=== PATIENT | female | born 1970 | race African-American/Black ===

== ENCOUNTER 2024-05-11 13:03 | Inpatient (IN) | payer OTHER ==
[2024-05-11 13:53] VITALS: BMI 25.4
[2024-05-11] MEDS ORDERED: hydrOXYzine PAMOATE 25 MG CAPSULE (FP) PO PRN (14:46)
[2024-05-11] MEDS ORDERED: ONDANSETRON *ODT* 4 MG TABLET SL PRN (14:46)
[2024-05-11] MEDS ORDERED: guaiFENesin 600 MG TABLET.ER (FP) PO PRN (14:46)
[2024-05-11] MEDS ORDERED: DICYCLOMINE HCL 10 MG CAPSULE PO PRN (14:46)
[2024-05-11] MEDS ORDERED: MAG HYDROX/AL HYDROX/SIMETH 30 ML UNIT-DOSE CUP PO PRN (14:46)
[2024-05-11] MEDS ORDERED: IBUPROFEN 600 MG TABLET (FP) PO PRN (14:46)
[2024-05-11] MEDS ORDERED: LOPERAMIDE HCL 2 MG CAPSULE PO PRN (14:46)
[2024-05-11] MEDS ORDERED: NALOXONE (NARCAN) HCL 4 MG/0.1 ML SPRAY NS PRN (14:46)
[2024-05-11] MEDS ORDERED: BISMUTH SUBSALICYLATE 262 MG/15 ML BTL PO PRN (14:46)
[2024-05-11] MEDS ORDERED: IBUPROFEN 400 MG TABLET (FP) PO PRN (14:46)
[2024-05-11] MEDS ORDERED: BENZONATATE 200 MG CAPSULE PO PRN (14:46)
[2024-05-11] MEDS ORDERED: BENZOCAINE/MENTHOL (CHLORASEPTIC ) LOZENGE MM PRN (14:46)
[2024-05-11] MEDS ORDERED: METHOCARBAMOL 500 MG TABLET PO PRN (14:46)
[2024-05-11] MEDS: INSULIN ASPART SLIDING SCALE (NOVOLOG) 1 VIAL SQ SCH (16:57)
[2024-05-11] MEDS: MELATONIN 5 MG TABLETS PO SCH (21:58)
[2024-05-11] MEDS: SACUBITRIL/VALSARTAN 49 MG-51 MG TABLET PO SCH (21:58)
[2024-05-11] MEDS: THIAMINE 100 MG TABLET PO SCH (21:58)
[2024-05-11] MEDS: FUROSEMIDE 20 MG TABLET (FP) PO SCH (21:58)
[2024-05-11] MEDS: risperiDONE 1 MG TABLET PO SCH (21:59)
[2024-05-11] MEDS: CARVEDILOL 12.5 MG TABLET (FP) PO SCH (21:59)
[2024-05-11] MEDS: ATORVASTATIN CA 10 MG TABLET (FP) PO SCH (21:59)
[2024-05-11] MEDS ORDERED: risperiDONE 2 MG TABLET PO SCH ×2 (22:00)
[2024-05-11] MEDS ORDERED: RISPERIDONE PO SCH (22:00)
[2024-05-12] MEDS: BICTEGRAV/EMTRICIT/TENOFOV (BIKTARVY) 50-200-25 MG TABLET PO SCH (07:20)
[2024-05-12] MEDS ORDERED: chlordiazePOXIDE HCL 25 MG CAPSULE PO PRN (09:30)
[2024-05-12] MEDS: FLUTICASONE/UMECLIDIN/VILANTER(100-62.5-25 TRELEGY ELLIPTA) INAHLER IH SCH (10:23)
[2024-05-12] MEDS: PRENATAL VITAMINS W/ FOLIC ACID TABLET (FP) PO SCH (10:23)
[2024-05-12] MEDS: chlordiazePOXIDE HCL 25 MG CAPSULE PO SCH (10:26)
[2024-05-12 11:36] LABS: HEMATOCRIT 41.6 % (32.4-45.2); HEMOGLOBIN 13.8 GM/dL (10.7-15.3); MCH 31.3 pg (25.7-33.7); MCHC 33.2 g/dl (32.0-36.0); MEAN CELL VOLUME 94.1 fl (80-96); MEAN PLT VOLUME 9.5 fl (7.5-11.1); PLATELET COUNT 223 10^3/uL (134-434); RBC 4.41 M/mm3 (3.60-5.2); RDW 14.3 % (11.6-15.6); WHITE BLOOD COUNT 4.2 K/mm3 (4.0-10.0)
[2024-05-12 14:09] LABS: CHLORIDE 111 mmol/L (98-107); POTASSIUM 3.7 mmol/L (3.5-5.1); SODIUM 143 mmol/L (136-145)
[2024-05-12 14:17] LABS: ALBUMIN 3.1 g/dl (3.4-5.0); ANION GAP 6 mmol/L (4-13); BLOOD UREA NITROGEN 11.9 mg/dL (7-18); CO2 26 mmol/L (21-32)
[2024-05-12 14:18] LABS: GLUCOSE,RANDOM 114 mg/dL (74-106)
[2024-05-12 14:20] LABS: CREATININE 0.7 mg/dL (0.55-1.3); SGOT/AST 16 U/L (15-37)
[2024-05-12 14:21] LABS: SGPT/ALT 23 U/L (13-61)
[2024-05-12 14:22] LABS: BILIRUBIN,TOTAL 0.3 mg/dL (0.2-1)
[2024-05-12 14:23] LABS: ALK PHOS 66 U/L (45-117); TOT PROT 6.5 g/dl (6.4-8.2)
[2024-05-12] MEDS: traZODone HCL 50 MG TABLET (FP) PO SCH (22:58)
[2024-05-13] MEDS ORDERED: INSULIN ASPART SLIDING SCALE (NOVOLOG) 1 VIAL SQ ONE (11:06)
[2024-05-13] MEDS: ACETAMINOPHEN 325 MG TABLET (FP) PO PRN (17:23)
[2024-05-13] MEDS: POLYETHYLENE GLYCOL (HEALTHYLAX) 3350 17 GM PACKET PO PRN (17:39)
[2024-05-14] MEDS: chlordiazePOXIDE HCL 25 MG CAPSULE PO SCH (06:00)
[2024-05-14] MEDS: MAGNESIUM HYDROX 2400MG/30ML ORAL SUSPENSION 30 ML CUP PO PRN (06:29)
[2024-05-15] MEDS ORDERED: chlordiazePOXIDE HCL 10 MG CAPSULE PO PRN
[2024-05-15] MEDS: chlordiazePOXIDE HCL 10 MG CAPSULE PO SCH (06:05)
[2024-05-15] MEDS: ALBUTEROL SO4 HFA INHALER IH PRN (22:42)
[2024-05-16] MEDS: chlordiazePOXIDE HCL 10 MG CAPSULE PO SCH (05:58)
[2024-05-17] MEDS: chlordiazePOXIDE HCL 10 MG CAPSULE PO ONE (05:52)
[2024-05-17 06:26] VITALS: TEMP 97.6
[2024-05-17 09:05] VITALS: BP 135/94; PULSE 75; RESP 16
== END 2024-05-17 09:28 | disposition home or self-care (01) | DRG 774 ==
LOC: YASAS 13:03 → Y3N 15:24
PROVIDERS: ADMIT Allergy & Immunology; ATTEND Allergy & Immunology
PROC: HZ2ZZZZ Detoxification Services for Substance Abuse Treatment (ICD-10-PCS; principal; 2024-05-11)
DX: F10.230 Alcohol dependence with withdrawal, uncomplicated (principal); F14.10 Cocaine abuse, uncomplicated; F12.10 Cannabis abuse, uncomplicated; F17.210 Nicotine dependence, cigarettes, uncomplicated; F31.81 Bipolar II disorder; F20.9 Schizophrenia, unspecified; F41.9 Anxiety disorder, unspecified; Z21 Asymptomatic human immunodeficiency virus [HIV] infection status; I11.0 Hypertensive heart disease with heart failure; I50.9 Heart failure, unspecified; J44.9 Chronic obstructive pulmonary disease, unspecified; E78.5 Hyperlipidemia, unspecified; E11.9 Type 2 diabetes mellitus without complications; Z79.84 Long term (current) use of oral hypoglycemic drugs; Z79.85 Long-term (current) use of injectable non-insulin antidiabetic drugs
CPT/HCPCS: 36415; 71046-TC-FY; 80053; 80305; 80307; 81025; 82962; 85027; 86593; 86780; 93005; 93010